=== PATIENT | male | born 1960 | race African-American/Black ===

== ENCOUNTER → 2025-01-05 | Day surgery (SDC) | payer MEDICARE ==
[~2025-01-05] MED LIST: ALLOPURINOL100 MG PO; ATORVASTATIN CA80 MG PO; LASIX20 MG PO; LIDOCAINE HCL 2% LOCAL INJ 5 ML SDV VIAL INJ ONE; METOPROLOL SUCC25 MG PO; OMEPRAZOLE40 MG PO; OXYBUTYNIN CHLOR5 MG PO; PROPOFOL IV EMULSION 10 MG/ML 20 ML VIAL ONE; ZETIA10 MG PO
[2025-01-05] MEDS: LACTATED RINGER'S 1,000 ML ONE (09:05)
[2025-01-05 11:47] VITALS: TEMP 98.3
[2025-01-05 12:15] VITALS: BP 148/84; PULSE 72; RESP 16; O2SAT 98
== END | disposition home or self-care (01) ==
LOC: OR 08:24
PROVIDERS: ATTEND Internal Medicine Gastroenterology
DX: Z09 Encounter for follow-up examination after completed treatment for conditions other than malignant neoplasm (principal); D12.5 Benign neoplasm of sigmoid colon; K63.5 Polyp of colon; K64.8 Other hemorrhoids; K31.7 Polyp of stomach and duodenum; K29.50 Unspecified chronic gastritis without bleeding; K21.00 Gastro-esophageal reflux disease with esophagitis, without bleeding; K44.9 Diaphragmatic hernia without obstruction or gangrene; I10 Essential (primary) hypertension; Z01.810 Encounter for preprocedural cardiovascular examination
CPT/HCPCS: 43239; 45385; 88305; 88342; 93005; J2003; J2704; J7121